=== PATIENT | male | born 1960 | race Caucasian/White ===

== ENCOUNTER 2017-04-17 07:04 | Day surgery (SDC) | payer OTHER ==
[~2017-04-17] VITALS: Ht 193 cm; Wt 89.8 kg
[~2017-04-17 07:04] MED LIST: BUPIVACAINE/PF 0.5% ONE
[2017-04-17] MEDS ORDERED: NO MEDS PER PT (07:33)
[2017-04-17] MEDS ORDERED: LACTATED RINGERS 1,000 ML IV SCH (07:33)
[2017-04-17 07:34] VITALS: BP 142/54
[2017-04-17] MEDS ORDERED: FENTANYL PF 100 MCG/2ML ONE ×3 (07:47→10:25)
[2017-04-17] MEDS ORDERED: MIDAZOLAM 1 MG/ML, 2ML ONE (07:49)
[2017-04-17] MEDS ORDERED: PROPOFOL 10 MG/ML, 20ML ONE (07:49)
[2017-04-17] MEDS ORDERED: NEOSTIGMINE 1 MG/ML, 10ML ONE (07:51)
[2017-04-17] MEDS ORDERED: ROCURONIUM 10 MG/ML,10ML ONE ×2 (07:51→09:23)
[2017-04-17] MEDS ORDERED: CEFAZOLIN 1,000 MG ONE ×2 (07:52)
[2017-04-17] MEDS ORDERED: GLYCOPYRROLATE 0.2MG/1ML, 5ML ONE (09:23)
[2017-04-17] MEDS ORDERED: OXYcodone 5 MG/5 ML ORAL.SOL UDC PO PRN (09:30)
[2017-04-17] MEDS ORDERED: hydrALAzine 20 MG/ML, 1ML IV PRN (09:30)
[2017-04-17] MEDS ORDERED: FENTANYL PF 100 MCG/2ML IV PRN (09:30)
[2017-04-17] MEDS ORDERED: LABETALOL 5MG/ML, 20ML IV PRN (09:30)
[2017-04-17] MEDS ORDERED: MEPERIDINE/PF 25MG/0.5ML IVPush PRN (09:30)
[2017-04-17] MEDS ORDERED: PROMETHAZINE 25 MG/ML, 1ML IV PRN (09:30)
[2017-04-17] MEDS ORDERED: ACETAMINOPHEN 325 MG TABLET PO PRN (09:30)
[2017-04-17] MEDS ORDERED: HYDROmorphone 1 MG/ML, 1ML IV PRN (09:30)
[2017-04-17] MEDS ORDERED: ONDANSETRON 2MG/ML, 2ML IVPush PRN (09:30)
[2017-04-17] MEDS ORDERED: BUPIVACAINE/PF-EPI 0.5% 1:200K IM ONE (09:44)
[2017-04-17] MEDS ORDERED: KETOROLAC 30 MG/1 ML ONE (10:01)
[2017-04-17] MEDS ORDERED: OXYcodone 5 MG/5 ML ORAL.SOL UDC ONE (10:25)
[2017-04-17] MEDS ORDERED: ACETAMINOPHEN 650 MG/20.3 ML UDC ONE (10:25)
[2017-04-17] MEDS: OXYcodone 5 MG/5 ML ORAL.SOL UDC PO PRN ×2 (10:29→15:07)
[2017-04-17] MEDS ORDERED: HYDROmorphone 2 MG/ML, 1ML IVPush PRN (10:30)
== END 2017-04-17 15:10 ==
LOC: OUT 07:04
PROVIDERS: ATTEND Surgery
DX: K40.90 Unilateral inguinal hernia, without obstruction or gangrene, not specified as recurrent (principal); D17.6 Benign lipomatous neoplasm of spermatic cord; I10 Essential (primary) hypertension; F41.9 Anxiety disorder, unspecified; Z87.891 Personal history of nicotine dependence; Z72.89 Other problems related to lifestyle; Z98.890 Other specified postprocedural states
CPT/HCPCS: 49650; C1781; J0690; J1885; J2250; J2704; J2710; J3010; J3490; J7120; S2900

== ENCOUNTER → 2018-03-05 | Outpatient (CLI) | payer OTHER ==
[~2018-03-05] MED LIST changes: -BUPIVACAINE/PF 0.5% ONE; +NO MEDS PER PT
[2018-03-05 07:26] LABS: ALBUMIN 3.9 g/dL (3.4-5.0); ANION GAP 8 mmol/L (5-15); CHLORIDE 108 mmol/L (98-107)
[2018-03-05 07:30] LABS: ALANINE AMINOTRANSFERASE 24 U/L (12-78); ALKALINE PHOSPHATASE 63 U/L (45-117); BILIRUBIN,TOTAL 0.5 mg/dL (0.2-1.0); CHOL/HDL RATIO 4.1; CHOLESTEROL, TOTAL 164 mg/dL (140-239); CREATININE 0.95 mg/dL (0.7-1.3); HDL CHOL % 24 % (26-37); HDL CHOLESTEROL (DIRECT) 40 mg/dL (40-60); LDL CHOLESTEROL,CALCULATED 109 mg/dL (54-169); LDL/HDL RATIO 2.7 (0.5-3.0); TOTAL PROTEIN 7.7 g/dL (6.4-8.2); TRIGLYCERIDES 76 mg/dL (50-200); VLDL CHOLESTEROL 15 mg/dL (0-25)
== END | disposition home or self-care (01) ==
LOC: LAB 07:05
PROVIDERS: ATTEND Nurse Practitioner Primary Care
DX: E78.5 Hyperlipidemia, unspecified (principal); I10 Essential (primary) hypertension
CPT/HCPCS: 36415; 80053; 80061

== ENCOUNTER → 2018-09-30 | Outpatient (CLI) | payer OTHER ==
[2018-09-30 08:36] LABS: FREE T4 (FREE THYROXINE) 1.01 ng/dL (0.76-1.46); THYROID STIMULATING HORMONE 0.964 mIU/L (0.358-3.740)
== END | disposition home or self-care (01) ==
LOC: LAB 07:59
PROVIDERS: ATTEND Nurse Practitioner Primary Care
DX: I10 Essential (primary) hypertension (principal); R68.82 Decreased libido
CPT/HCPCS: 36415; 84402; 84403; 84439; 84443; 84481

== ENCOUNTER 2019-01-21 18:24 | Emergency (ER) | payer OTHER ==
[~2019-01-21] VITALS: Ht 193 cm; Wt 90.0 kg
[2019-01-21 20:40] VITALS: BP 121/74
== END 2019-01-21 20:42 | disposition home or self-care (01) ==
LOC: ED 20:14
DX: N20.1 Calculus of ureter (principal); R06.02 Shortness of breath; I10 Essential (primary) hypertension
CPT/HCPCS: 36415; 74176; 80048; 81001; 82040; 85025; 99284